=== PATIENT | female | born 1955 | race African-American/Black ===

== ENCOUNTER 2021-09-25 17:11 | Observation (INO) | payer OTHER ==
[2021-09-25] MEDS ORDERED: SODIUM CHLORIDE 1,000 ML IV SCH (18:45)
[2021-09-25 19:36] LABS: BASO % 0.3 % (0-2.0); EOS % 0.3 % (0-4.5); HEMATOCRIT 39.9 % (32.4-45.2); HEMOGLOBIN 13.1 GM/dL (10.7-15.3); LYMPH % 28.7 % (8-40); MCH 26.6 pg (25.7-33.7); MCHC 32.9 g/dl (32.0-36.0); MEAN CELL VOLUME 80.9 fl (80-96); MEAN PLT VOLUME 8.7 fl (7.5-11.1); MONO % 7.2 % (3.8-10.2); NEUT % 63.5 % (42.8-82.8); PLATELET COUNT 276 10^3/uL (134-434); RBC 4.93 M/mm3 (3.60-5.2); RDW 16.4 % (11.6-15.6); WHITE BLOOD COUNT 6.6 K/mm3 (4.0-10.0)
[2021-09-25 19:38] LABS: INR 1.13 (0.83-1.09)
[2021-09-25 19:41] LABS: ACTIVATED PTT 35.7 SECONDS (25.2-36.5)
[2021-09-25 19:44] LABS: ALBUMIN 3.3 g/dl (3.4-5.0); BLOOD UREA NITROGEN 15.7 mg/dL (7-18)
[2021-09-25 19:47] LABS: CREATININE 0.6 mg/dL (0.55-1.3)
[2021-09-25 19:49] LABS: BILIRUBIN,TOTAL 1.2 mg/dL (0.2-1); TOT PROT 7.7 g/dl (6.4-8.2)
[2021-09-25] MEDS ORDERED: DEXTROSE 5%-0.45% SALINE 1,000 ML IV SCH (20:45)
[2021-09-26 10:43] LABS: BASO % 0.8 % (0-2.0); EOS % 0.4 % (0-4.5); HEMATOCRIT 37.9 % (32.4-45.2); HEMOGLOBIN 12.9 GM/dL (10.7-15.3); LYMPH % 37.8 % (8-40); MCH 27.3 pg (25.7-33.7); MCHC 34.1 g/dl (32.0-36.0); MEAN CELL VOLUME 80.1 fl (80-96); MEAN PLT VOLUME 8.5 fl (7.5-11.1); MONO % 6.7 % (3.8-10.2); NEUT % 54.3 % (42.8-82.8); PLATELET COUNT 266 10^3/uL (134-434); RBC 4.73 M/mm3 (3.60-5.2); RDW 16.3 % (11.6-15.6); WHITE BLOOD COUNT 6.1 K/mm3 (4.0-10.0)
[2021-09-26 10:54] LABS: CALCIUM 9.4 mg/dL (8.5-10.1)
[2021-09-26 10:55] LABS: BLOOD UREA NITROGEN 14.8 mg/dL (7-18)
[2021-09-26 10:58] LABS: CREATININE 0.6 mg/dL (0.55-1.3)
[2021-09-26 12:09] LABS: SARS-CoV-2 NAA Not Detected (Not Detected)
[2021-09-26 13:04] VITALS: BMI 26.2
[2021-09-26 20:25] VITALS: BP 118/68; PULSE 81; TEMP 98.3
== END 2021-09-26 21:56 ==
LOC: JER 17:11 → INTOOBSV 18:15 → JERBED 18:15 → J6S 09-26 11:05
PROVIDERS: ADMIT Internal Medicine; ATTEND Internal Medicine
PROC: 0DH63UZ Insertion of Feeding Device into Stomach, Percutaneous Approach (ICD-10-PCS; principal; 2021-09-25)
DX: T85.528A Displacement of other gastrointestinal prosthetic devices, implants and grafts, initial encounter (principal); Y73.3 Surgical instruments, materials and gastroenterology and urology devices (including sutures) associated with adverse incidents; Y92.129 Unspecified place in nursing home as the place of occurrence of the external cause; F20.9 Schizophrenia, unspecified; K21.9 Gastro-esophageal reflux disease without esophagitis; Z20.822 Contact with and (suspected) exposure to COVID-19
CPT/HCPCS: 36415; 49440; 80048; 80053; 85025; 85610; 85730; 86850; 86900; 86901; 93005; 93010; 99285-25; C9803-CS; G0378; U0003; U0005

== ENCOUNTER 2022-01-12 20:44 | Observation (INO) | payer OTHER ==
[2022-01-12] MEDS ORDERED: LIDOCAINE HCL 2% JELLY 10 ML CARTRIDGE ONE ×2 (22:36→22:37)
[2022-01-12 23:18] LABS: BASO % 0.4 % (0-2.0); EOS % 0.1 % (0-4.5); HEMATOCRIT 40.3 % (32.4-45.2); HEMOGLOBIN 13.4 GM/dL (10.7-15.3); LYMPH % 32.7 % (8-40); MCH 27.4 pg (25.7-33.7); MCHC 33.2 g/dl (32.0-36.0); MEAN CELL VOLUME 82.4 fl (80-96); MEAN PLT VOLUME 9.3 fl (7.5-11.1); MONO % 5.5 % (3.8-10.2); NEUT % 61.3 % (42.8-82.8); PLATELET COUNT 227 10^3/uL (134-434); RBC 4.89 M/mm3 (3.60-5.2); RDW 14.5 % (11.6-15.6); WHITE BLOOD COUNT 8.1 K/mm3 (4.0-10.0)
[2022-01-12 23:25] LABS: INR 1.15 (0.83-1.09); PROTHROMBIN TIME (PATIENT) 13.2 SEC (9.7-13.0)
[2022-01-12 23:27] LABS: ACTIVATED PTT 33.8 SECONDS (25.2-36.5)
[2022-01-12 23:40] LABS: ALBUMIN 3.6 g/dl (3.4-5.0); BLOOD UREA NITROGEN 17.3 mg/dL (7-18); CALCIUM 9.5 mg/dL (8.5-10.1)
[2022-01-12 23:43] LABS: CREATININE 0.7 mg/dL (0.55-1.3)
[2022-01-12 23:45] LABS: BILIRUBIN,TOTAL 0.5 mg/dL (0.2-1); TOT PROT 8.1 g/dl (6.4-8.2)
[2022-01-13] MEDS ORDERED: MAGNESIUM SULF 50% (8.12 MEQ/2 ML-1 GM VIAL) IVPB ONE (00:14)
[2022-01-13] MEDS ORDERED: MAGNESIUM SULFATE IN WATER 2 GM/50 ML IVPB IVPB ONE (00:30)
[2022-01-13] MEDS: DEXTROSE 5%-0.45% SALINE 1,000 ML IV SCH ×2 (00:40→16:01)
[2022-01-13] MEDS ORDERED: D5-1/2NS+10 MEQ KCL - 10 MEQ/1,000 ML INFUS.BAG IV SCH (17:50)
[2022-01-14] MEDS ORDERED: LORazepam 2 MG/ML SDV VIAL IVPUSH ONE (00:53)
[2022-01-14] MEDS ORDERED: PNEUMOC 20-VAL CONJ-DIP CRM/PF 0.5 ML SYRINGE IM ONE (12:27)
[2022-01-14] MEDS ORDERED: LORazepam 2 MG/ML SDV VIAL IVPUSH PRN (12:27)
[2022-01-14] MEDS: SERTRALINE HCL 25 MG TABLET (FP) PO SCH (12:50)
[2022-01-14] MEDS: FUROSEMIDE 40 MG TABLET (FP) GT SCH (12:50)
[2022-01-14] MEDS: VALPROATE SODIUM 250 MG/5 ML UNIT DOSE CUP GT SCH ×2 (14:41→21:24)
[2022-01-14] MEDS: ARIPiprazole 5 MG TABLET PO SCH (14:44)
[2022-01-15] MEDS ORDERED: LORazepam 2 MG/ML SDV VIAL IM PRN (09:32)
[2022-01-15] MEDS: VALPROATE SODIUM 250 MG/5 ML UNIT DOSE CUP GT SCH (10:15)
[2022-01-15] MEDS: FUROSEMIDE 40 MG TABLET (FP) GT SCH (10:16)
[2022-01-15] MEDS: SERTRALINE HCL 25 MG TABLET (FP) PO SCH (10:16)
[2022-01-15] MEDS: ARIPiprazole 5 MG TABLET PO SCH (10:16)
[2022-01-15 11:51] VITALS: BMI 23.7
[2022-01-15 15:32] VITALS: BP 99/54; PULSE 63
[2022-01-15 15:47] VITALS: TEMP 99
== END 2022-01-15 17:00 ==
LOC: JER 20:44 → JERBED 22:43 → J6S 01-13 15:46
PROVIDERS: ADMIT Internal Medicine; ATTEND Internal Medicine
PROC: 0DW60UZ Revision of Feeding Device in Stomach, Open Approach (ICD-10-PCS; principal; 2022-01-12)
PROC: 3E0337Z Introduction of Electrolytic and Water Balance Substance into Peripheral Vein, Percutaneous Approach (ICD-10-PCS; 2022-01-12)
PROC: 3E033NZ Introduction of Analgesics, Hypnotics, Sedatives into Peripheral Vein, Percutaneous Approach (ICD-10-PCS; 2022-01-12)
PROC: 3E0233Z Introduction of Anti-inflammatory into Muscle, Percutaneous Approach (ICD-10-PCS; 2022-01-12)
PROC: 3E023GC Introduction of Other Therapeutic Substance into Muscle, Percutaneous Approach (ICD-10-PCS; 2022-01-12)
DX: T85.528A Displacement of other gastrointestinal prosthetic devices, implants and grafts, initial encounter (principal); F20.9 Schizophrenia, unspecified; K21.9 Gastro-esophageal reflux disease without esophagitis; F03.90 Unspecified dementia, unspecified severity, without behavioral disturbance, psychotic disturbance, mood disturbance, and anxiety; Z20.822 Contact with and (suspected) exposure to COVID-19; Z29.8 Encounter for other specified prophylactic measures; X58.XXXA Exposure to other specified factors, initial encounter; Y93.89 Activity, other specified; Y92.89 Other specified places as the place of occurrence of the external cause; Z91.018 Allergy to other foods
CPT/HCPCS: 36415; 49450; 71045-TC-FY; 80053; 85025; 85610; 85730; 86850; 86900; 86901; 90677; 93005; 93010; 96365; 96372; 96375; 96376; 99285-25; C1769; C1887; C9803-CS; G0009; G0378; U0003; U0005